=== PATIENT | female | born 1945 | race Hispanic/Latino ===

== ENCOUNTER 2016-12-18 15:14 | Outpatient (CLI) | payer MEDICARE, OTHER ==
--- NOTE | 2016-12-18 16:29 | XRay Report ---
LUMBAR SPINE RADIOGRAPHS INDICATION: Lumbar stenosis with neurogenic claudication. COMPARISON: None similar. FINDINGS: AP view with flexion and extension lateral lumbar spine radiographs demonstrate approximately 4 mm anterolisthesis of L4 over L5 and L5 over S1. L5-S1 disc maintainers also seen. Mild lumbar degenerative spurring and disc narrowing. Lower lumbar facet arthropathy. Demineralized bones. Mild lower thoracic spine degenerative spurring as well. Slight lumbar dextrocurvature apex about L4. Clear visualized lung bases. Probable cholecystectomy clips. Bilateral SI joint degenerative sclerosis. CONCLUSION: Multilevel spinal degenerative changes and few iatrogenic changes, including lower lumbar surgery, as described. Please correlate. Thank you for the opportunity to participate in this patient's care.
== END 2016-12-18 15:15 | disposition home or self-care (01) ==
LOC: SPVIMAG 15:14
PROVIDERS: ATTEND Neurological Surgery
DX: M48.06 Spinal stenosis, lumbar region (principal); M12.88 Other specific arthropathies, not elsewhere classified, other specified site; M43.8X6 Other specified deforming dorsopathies, lumbar region; M47.896 Other spondylosis, lumbar region
CPT/HCPCS: 72100